=== PATIENT | male | born 1965 | race Asian ===

== ENCOUNTER 2020-02-11 12:31 | Outpatient (REF) | payer BC, SELFPAY ==
[2020-02-11 13:38] LABS: Hematocrit 42.2 % (42-52); Mean Corpuscular HGB Conc 33.2 g/dl (31.0-36.0); Mean Corpuscular Hemoglobin 28.2 pg (27.0-33.0); Mean Corpuscular Volume 84.9 fL (80-98); Mean Platelet Volume 10.9 fL (9.4-12.4); Platelet Count 194 X10*3/uL (160-400); Red Blood Count 4.97 X10*6/uL (4.60-5.80); Red Cell Distribution Width 11.7 % (11.0-16.0); White Blood Count 6.1 X10*3/uL (4.8-10.8)
[2020-02-11 14:06] LABS: Alanine Aminotransferase 25 U/L (0-40); Albumin Level 4.5 g/dL (3.5-5.0); Alkaline Phosphatase 67 U/L (39-117); Anion Gap 12 (12-20); Aspartate Amino Transferase 22 U/L (5-37); Bilirubin Direct 0.3 mg/dL (0.0-0.5); Bilirubin Total 0.8 mg/dL (0.0-1.0); Blood Urea Nitrogen 13 mg/dL (9-16); Calcium 8.9 mg/dL (8.4-10.2); Carbon Dioxide 27 mmol/L (22-29); Chloride 103 mmol/L (96-108); Cholesterol 167 mg/dL; Estimated Glomerular Filt Rate > 60; Glucose Fasting 87 mg/dL (60-99); HDL Cholesterol 41 mg/dL; LDL Cholesterol Calculated 107 mg/dl; Potassium 4.3 mmol/l (3.3-5.1); Sodium 138 mmol/L (135-145); Total Protein 7.7 g/dL (6.5-8.0); Triglycerides 98 mg/dL
== END 2020-02-11 12:32 | disposition home or self-care (01) ==
LOC: HO.10HDL 12:31
DX: E78.5 Hyperlipidemia, unspecified (principal); K21.9 Gastro-esophageal reflux disease without esophagitis
CPT/HCPCS: 36415; 80053; 80061; 80076; 82248; 85027

== ENCOUNTER 2022-11-28 10:17 | Outpatient (AMB) | payer BC, SELFPAY ==
[2022-11-28 10:29] VITALS: BP 126/60; PULSE 77; BMI 25.5
--- NOTE | 2022-11-28 10:29 | A.OFFVIS_ITS ---
Intake Vital Signs 11/28/22 10:29 Height 5 ft 9 in Weight 172 lb 13.478 oz BMI 25.5 BP 126/60 Blood Pressure Location Rt brachial Position Sitting Pulse 77 Intake Visit Reasons: Reestablish Care Intake Note: Patient presents to in office visit today as a new patient for bloating. CC: Last colonoscopy was done in 2021 and it was normal per Patient. He c/o bloating and feeling of fullness after eating. Allergies No Known Allergies Allergy (Verified 11/28/22 10:32) HPI Reestablish Care HPI Details 57 yr old patient being seen for assessment for bowel symptoms He had a colonoscopy and he had dx of UC last year He has bloating and fullness when he eats he never has any abdominal pain, he has acid reflux and he takes prevacid which helps control this v well he also takes mesalamine once daily --he felt higher doses constipate him if he misses this then he gets diarhea he avoids milk unless lactose free he goes to the bathroom once a day, formed, no blood at this tme he denies joint pains or swelling--takes glucosamine he does have tiredness no mouth ulcers no skin rash he does have anxiety, no depression he has muscle massages due to muscle spasms, PMH: glaucoma, UC, high cholesterol, GERD PSH: colonoscopy and EGD SH: non smoker, no alcohol, job for pos toffice FH: heart attack father, ?he also had colitis, ?mother wih ovarian cancer ROS: Constitutional : No Weight loss, No Fever, No Chills ENT/Mouth : No sore throat, No Rhinorrhea Eyes: No Swelling, No Redness Cardiovascular : No Chest Pain, No SOB, No Edema Respiratory : No Cough, No Sputum, No Wheezing Gastrointestinal : see HPI Genitourinary : NO Dysuria, No Urinary Frequency, No Hematuria, No Urgency Musculoskeletal : No joint pain, No Myalgias, No Joint Swelling Skin : No Skin Lesions, No rash Neuro : No Weakness, No Numbness, No Dizziness, No Headache Psych : No Anxiety/Panic, No Depression Heme/Lymph: No Bruising, No Lymphadenopathy Endocrine : No Polyuria, No Polydipsia All other systems reviewed and are negative. EXAM: GENERAL: The patient is well developed and nontoxic. VITAL SIGNS:see workflow HEENT: Nonicteric sclerae, PERRLA, EOMI. Oropharynx clear. Moist mucous membranes. Conjunctivae appear well perfused. No thyroid mass. CHEST: Chest wall is nontender. HEART: Regular rate and rhythm without murmurs. LUNGS: Clear to auscultation bilaterally. ABDOMEN: Soft, positive bowel sounds, nontender, no organomegaly.no flank tenderness SKIN: No rash, no excessive bruising, petechiae, or purpura. NEUROLOGIC: Cranial nerves II-XII intact without motor/sensory deficit. MS; normal movement A/P: 1/ Abdominal bloating and fullness, maybe due to SIBO, vs lactose intolerance, or other CHO intolerance 2/ muscle cramps, maybe due to nutritonal def or statin 3/ fatigue and tiredness maybe due to UC 4/ GERD---controlled 5/ UC-- seems controlled Plan: 1/ check labs, incl nutriton screen Ck, TSH, celiac panel 2/ H pylori breath test--stop PPI for 2 weeks 3/ check fecal lactoferrin, if high maybe change mesalamine to apriso prep 4/ check for H pylori --stp PPI for 2 weeks 5/ he will try probiotics-hold on abx for the moment, advised on Vit D supplement, 1000 units daily, [facility] Surgical History (Updated 11/28/22 @ 10:34 by ANTON Norwood) H/O colonoscopy Social History (Updated 11/28/22 @ 10:34 by ANTON Norwood) Alcohol intake: never Patient Tobacco Use Status: Never used Tobacco Physical Exam Vital Signs: Last Vital Signs Pulse 77 11/28/22 10:29 BP 126/60 11/28/22 10:29 BMI result Body Mass Index 25.5 Assessment & Plan Assessment & Plan (1) Colitis: Code(s): K52.9 - Noninfective gastroenteritis and colitis, unspecified (2) Malnutrition: Code(s): E46 - Unspecified protein-calorie malnutrition (3) Thyroid disorder: Code(s): E07.9 - Disorder of thyroid, unspecified (4) Gastritis: Code(s): K29.70 - Gastritis, unspecified, without bleeding Orders: Orders Lactoferrin, Fecal, Quant. Today E07.9 - Disorder of thyroid, unspecified, E46 - Unspecified protein-calorie malnutrition, K51.50 - Left sided colitis without complications, K52.9 - Noninfective gastroenteritis and colitis, unspecified Vitamin B12 and Folate Today E07.9 - Disorder of thyroid, unspecified, E46 - Unspecified protein-calorie malnutrition, K52.9 - Noninfective gastroenteritis and colitis, unspecified Creatine Kinase Total Today E07.9 - Disorder of thyroid, unspecified, E46 - Unspecified protein-calorie malnutrition, K52.9 - Noninfective gastroenteritis and colitis, unspecified Comprehensive Met. Panel Today E07.9 - Disorder of thyroid, unspecified, E46 - Unspecified protein-calorie malnutrition, K52.9 - Noninfective gastroenteritis and colitis, unspecified, K75.81 - Nonalcoholic steatohepatitis (ANG) C Reactive Protein Today E07.9 - Disorder of thyroid, unspecified, E46 - Unspecified protein-calorie malnutrition, K52.9 - Noninfective gastroenteritis and colitis, unspecified Ferritin Today E07.9 - Disorder of thyroid, unspecified, E46 - Unspecified protein-calorie malnutrition, K52.9 - Noninfective gastroenteritis and colitis, unspecified Magnesium Today E07.9 - Disorder of thyroid, unspecified, E46 - Unspecified protein-calorie malnutrition, K52.9 - Noninfective gastroenteritis and colitis, unspecified TSH reflex Free T4 Today E07.9 - Disorder of thyroid, unspecified, E46 - Unspecified protein-calorie malnutrition, K52.9 - Noninfective gastroenteritis and colitis, unspecified Vitamin B3 (Niacin) Today E07.9 - Disorder of thyroid, unspecified, E46 - Unspecified protein-calorie malnutrition, K52.9 - Noninfective gastroenteritis and colitis, unspecified Vitamin E Today E07.9 - Disorder of thyroid, unspecified, E46 - Unspecified protein-calorie malnutrition, K52.9 - Noninfective gastroenteritis and colitis, unspecified Vitamin A Today E07.9 - Disorder of thyroid, unspecified, E46 - Unspecified protein-calorie malnutrition, K52.9 - Noninfective gastroenteritis and colitis, unspecified Vitamin B1 Today E07.9 - Disorder of thyroid, unspecified, E46 - Unspecified protein-calorie malnutrition, K52.9 - Noninfective gastroenteritis and colitis, unspecified Vitamin B5 (Pantothenic Acid) Today E07.9 - Disorder of thyroid, unspecified, E46 - Unspecified protein-calorie malnutrition, K52.9 - Noninfective gastroenteritis and colitis, unspecified Vitamin B6 Today E07.9 - Disorder of thyroid, unspecified, E46 - Unspecified protein-calorie malnutrition, K52.9 - Noninfective gastroenteritis and colitis, unspecified Vitamin C Today E07.9 - Disorder of thyroid, unspecified, E46 - Unspecified protein-calorie malnutrition, K52.9 - Noninfective gastroenteritis and colitis, unspecified Vitamin D 25-OH Total Today E07.9 - Disorder of thyroid, unspecified, E46 - Unspecified protein-calorie malnutrition, K52.9 - Noninfective gastroenteritis and colitis, unspecified Zinc Today E07.9 - Disorder of thyroid, unspecified, E46 - Unspecified protein- calorie malnutrition, K52.9 - Noninfective gastroenteritis and colitis, unspecified Complete Blood Count Auto Diff Today E07.9 - Disorder of thyroid, unspecified, E46 - Unspecified protein-calorie malnutrition, K52.9 - Noninfective gastroenteritis and colitis, unspecified Transglutaminase IgA Today E07.9 - Disorder of thyroid, unspecified, E46 - Unspecified protein-calorie malnutrition, K52.9 - Noninfective gastroenteritis and colitis, unspecified Transglutaminase Ab IgG Today E07.9 - Disorder of thyroid, unspecified, E46 - Unspecified protein-calorie malnutrition, G89.29 - Other chronic pain, K52.9 - Noninfective gastroenteritis and colitis, unspecified, R10.33 - Periumbilical pain Hepatitis A,B,C Profile Today E07.9 - Disorder of thyroid, unspecified, E46 - Unspecified protein-calorie malnutrition, K52.9 - Noninfective gastroenteritis and colitis, unspecified H Pylori Breath Test Today E07.9 - Disorder of thyroid, unspecified, E46 - Unspecified protein-calorie malnutrition, K29.70 - Gastritis, unspecified, without bleeding, K52.9 - Noninfective gastroenteritis and colitis, unspecified Coding Level of Care Code New Pt Level 4 (75637) Diagnoses Colitis K52.9 Malnutrition E46 Thyroid disorder E07.9 Gastritis K29.70
== END 2022-11-28 11:24 | disposition home or self-care (01) ==
PROVIDERS: Visit Provider Internal Medicine Gastroenterology
DX: K52.9 Noninfective gastroenteritis and colitis, unspecified (principal); E46 Unspecified protein-calorie malnutrition; E07.9 Disorder of thyroid, unspecified; K29.70 Gastritis, unspecified, without bleeding
CPT/HCPCS: 99204

== ENCOUNTER 2022-11-28 10:17 | Outpatient (REF) | payer BC, SELFPAY | END 2022-11-28 10:18 | disposition home or self-care (01) | LOC: HO.LAB 10:17 | PROVIDERS: PCP Hospitalist; Visit Provider Internal Medicine Gastroenterology | DX: Z13.89 Encounter for screening for other disorder (principal) ==

== ENCOUNTER 2022-11-29 11:14 | Outpatient (REF) | payer BC, SELFPAY ==
[2022-11-29 11:40] LABS: MANUAL DIFF FLAG NO
[2022-11-29 11:55] LABS: Basophils Absolute Auto 0.1 X10*3/uL (0.0-0.2); Eosinophils Absolute Auto 0.3 X10*3/uL (0.0-0.4); Eosinophils Percent Auto 4.9 % (0-4); Hematocrit 44.4 % (42.0-52.0); Imm Gran Abs Auto 0.01 X10*3/uL (0.00-0.03); Imm Gran Pct Auto 0.2 % (0.0-0.4); Lymphocytes Absolute Auto 1.3 X10*3/uL (1.2-4.9); Lymphocytes Percent Auto 25.3 % (20-40); Mean Corpuscular HGB Conc 33.8 g/dl (31.0-36.0); Mean Corpuscular Hemoglobin 28.3 pg (27.0-33.0); Mean Corpuscular Volume 83.8 fL (80.0-98.0); Mean Platelet Volume 11.4 fL (9.4-12.4); Monocytes Absolute Auto 0.4 X10*3/uL (0.1-1.2); Monocytes Percent Auto 7.3 % (2-11); Neutrophils Absolute Auto 3.1 x10*3/uL (2.0-8.3); Neutrophils Percent Auto 61.3 % (45-73); Platelet Count 204 X10*3/uL (160-400); Red Cell Distribution Width 12.1 % (11.0-16.0); White Blood Count 5.1 X10*3/uL (4.8-10.8)
[2022-11-29 12:49] LABS: Alanine Aminotransferase 21 U/L (0-40); Albumin Level 4.4 g/dL (3.5-5.0); Alkaline Phosphatase 64 U/L (39-117); Anion Gap 9 (12-20); Aspartate Amino Transferase 19 U/L (5-37); Blood Urea Nitrogen 13 mg/dL (9-16); C Reactive Protein < 0.10 mg/dL (< or = 0.50); Calcium 9.9 mg/dL (8.4-10.2); Carbon Dioxide 27 mmol/L (22-29); Chloride 106 mmol/L (96-108); Estimated Glomerular Filt Rate > 60; Glucose Random 93 mg/dL (60-115); Magnesium 2.4 mg/dL (1.6-2.6); Potassium 4.1 mmol/L (3.3-5.1); Sodium 138 mmol/L (135-145)
[2022-11-29 13:04] LABS: Ferritin 17 ng/mL (20-250); TSH reflex Free T4 3.12 uIU/mL (0.32-4.0); Vitamin D 25-OH Total 11.1 ng/mL (>30)
[2022-11-29 14:01] LABS: Folate 8.1 ng/mL (> or = 4.0); Vitamin B12 295 pg/mL (200-900)
[2022-11-30 04:12] LABS: HBS Num1 0.42 mIU/mL (0-7.99); HBc Num1 0.09 S/CO (0.00-0.79); HBsAGNum1 0.36 S/CO (0.00-0.99); Hepatitis A Antibody IgM 0.45 Index (0-0.79); Hepatitis B Core Antibody Nonreactive (Nonreactive); Hepatitis B Surface Antigen Negative (Negative); ~HepC Num1 0.07 S/CO (0.00-0.79); ~Hepatitis A Antibody IgM Nonreactive (Nonreactive); ~Hepatitis B Surface Antibody NONREACTIVE (Nonreactive); ~Hepatitis C Antibody Nonreactive (Nonreactive)
[2022-12-02 14:38] LABS: Transglutaminase Ab IgG <1.0 U/mL; Transglutaminase IgA <1.0 U/mL
[2022-12-03 21:09] LABS: Zinc 72 mcg/dL (60-130)
[2022-12-04 15:24] LABS: Vitamin B6 11.8 ng/mL (2.1-21.7)
[2022-12-04 18:29] LABS: Alpha-Tocopherol 11.2 mg/L (5.7-19.9); Beta-Gamma Tocopherol 1.6 mg/L (<=4.3); Vitamin A 49 mcg/dL (38-98)
[2022-12-05 14:49] LABS: Vitamin B1 10 nmol/L (8-30)
[2022-12-05 17:13] LABS: Vitamin C 0.1 mg/dL (0.2-2.1)
[2022-12-06 19:04] LABS: Nicotinamide 31 ng/mL; Vit B3 - Nicotinic Acid <20 ng/mL; Vitamin B5 (Pantothenic Acid) <40 ng/mL (<275)
== END 2022-11-29 11:15 | disposition home or self-care (01) ==
LOC: HO.LAB 11:14
PROVIDERS: Visit Provider Internal Medicine Gastroenterology
DX: R10.33 Periumbilical pain (principal); E07.9 Disorder of thyroid, unspecified; K52.9 Noninfective gastroenteritis and colitis, unspecified; K75.81 Nonalcoholic steatohepatitis (NASH); G89.29 Other chronic pain; E46 Unspecified protein-calorie malnutrition
CPT/HCPCS: 36415; 80053; 82180; 82306; 82550; 82607; 82728; 82746; 83735; 84207; 84425; 84443; 84446; 84590; 84591; 84630; 85025; 86140; 86364; 86704; 86706; 86709; 86803; 87340

== ENCOUNTER 2022-11-30 | Outpatient (REF) | payer BC, SELFPAY | END 2022-11-30 00:01 | disposition home or self-care (01) | LOC: HO.LNP | PROVIDERS: Visit Provider Internal Medicine Gastroenterology | DX: K51.50 Left sided colitis without complications (principal); K52.9 Noninfective gastroenteritis and colitis, unspecified; E46 Unspecified protein-calorie malnutrition; E07.9 Disorder of thyroid, unspecified | CPT/HCPCS: 83631 ==

== ENCOUNTER → 2022-12-12 09:17 | Outpatient (BNVA) | payer BC, SELFPAY | PROVIDERS: PCP Hospitalist; Visit Provider Internal Medicine Gastroenterology | DX: Z11.0 Encounter for screening for intestinal infectious diseases (principal) | CPT/HCPCS: 83013 ==

== ENCOUNTER 2023-03-07 09:06 | Outpatient (AMB) | payer BC, SELFPAY ==
--- NOTE | 2023-03-07 09:11 | A.OFFVIS_ITS ---
Intake Vital Signs 03/07/23 09:12 Height 5 ft 9 in Weight 175 lb BMI 25.8 BP 131/74 Blood Pressure Location Lt brachial Position Sitting Pulse 71 Intake Visit Reasons: 3 month follow up Intake Note: Patient 3 month follow up Colitis. Patient denies any GI issues. 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 Accompanied by: Self / Same As Patient Allergies No Known Allergies Allergy (Verified 03/07/23 09:10) HPI 3 month follow up HPI Details 57 yr old m here for f/u- hx of glaucoma , UC, high cholesterol, GERD RECAP: He had a colonoscopy and he had dx of UC 2021 He has bloating and fullness when he eats he never has any abdominal pain, he has acid reflux and he takes prevacid which helps control this v well he also takes mesalamine once daily --he felt higher doses constipate him if he misses this then he gets diarhea he avoids milk unless lactose free he goes to the bathroom once a day, formed, no blood at this tme he denies joint pains or swelling--takes glucosamine he does have tiredness no mouth ulcers no skin rash he does have anxiety, no depression he has muscle massages due to muscle spasms, LABS: ferritin- low , H pylori neg, celiac, neg, Vit D, B12 and Vit C levels low, fecal lactoferrin neg INTERIM: He can have cramps, when trying to go to the bathroom he has formed stools, burning at the rectal area he goes to the bathroom twice a day he takes mesalamine --only takes once a day as feels if he takes too much it can constipate no fever or nausea he has been taking MV, Vit D and Vit C He takes omeprazole prn EXAM: GENERAL: The patient is well developed and nontoxic. VITAL SIGNS:see workflow HEENT: Nonicteric sclerae, PERRLA, EOMI. Oropharynx clear. Moist mucous membranes. Conjunctivae appear well perfused. No thyroid mass. CHEST: Chest wall is nontender. HEART: Regular rate and rhythm without murmurs. LUNGS: Clear to auscultation bilaterally. ABDOMEN: Soft, positive bowel sounds, nontender, no organomegaly.no flank tenderness SKIN: No rash, no excessive bruising, petechiae, or purpura. NEUROLOGIC: Cranial nerves II-XII intact without motor/sensory deficit. MS; normal movement A/P: 1/ Malnutrition 2/ Iron def 3/ abn bowel habits, cramps with rectal burning Plan: 1/ Given nutrient def need to r/o crohns or other path, enteropathy-- 2/ repeat colonoscopy due to to iron def and c/o burning [facility] the [facility]um [facility] H/O colonoscopy Social History Alcohol intake: never Patient Tobacco Use Status: Never used Tobacco Physical Exam Vital Signs: Last Vital Signs Pulse 71 03/07/23 09:12 BP 131/74 03/07/23 09:12 BMI result Body Mass Index 25.8 Assessment & Plan Assessment & Plan (1) Iron deficiency: Code(s): E61.1 - Iron deficiency (2) Gastritis: Code(s): K29.70 - Gastritis, unspecified, without bleeding (3) Colitis: Code(s): K52.9 - Noninfective gastroenteritis and colitis, unspecified (4) Malnutrition: Code(s): E46 - Unspecified protein-calorie malnutrition Medications: New sodium,potassium,mag sulfates 17.5-3.13-1.6 gram (Supr Bowel Prep Kit) DILUTE; drink 1/2 at 6-8 pm and half at 11 PM- 1AM 354 mL 0RF Coding Level of Care Code Est Pt Level 4 (38684) Diagnoses Iron deficiency E61.1 Gastritis K29.70 Colitis K52.9 Malnutrition E46
[2023-03-07 09:12] VITALS: BP 131/74; PULSE 71; BMI 25.8
== END 2023-03-07 09:46 | disposition home or self-care (01) ==
PROVIDERS: PCP Hospitalist; Visit Provider Internal Medicine Gastroenterology
DX: E61.1 Iron deficiency (principal); K29.70 Gastritis, unspecified, without bleeding; K52.9 Noninfective gastroenteritis and colitis, unspecified; E46 Unspecified protein-calorie malnutrition
CPT/HCPCS: 99214

== ENCOUNTER → 2023-03-07 09:06 | Outpatient (BNVA) | payer BC, SELFPAY | PROVIDERS: PCP Hospitalist; Visit Provider Internal Medicine Gastroenterology ==

== ENCOUNTER 2023-05-29 08:38 | Day surgery (SDC) | payer BC, SELFPAY ==
[2023-05-27 12:35] VITALS: BMI 25.8
--- NOTE | 2023-05-28 10:17 | P.CONAN_ITS ---
Documented by User: Alexia Curtis NP 05/28/23 10:18 HPI - Anesthesia Eval Consult details Narrative: 57yo M for Upper Endoscopy and Colonoscopy [facility] Active Problems Active Problems: All Active Problems (Updated 05/27/23 @ 12:33 by Jyothi Gamino RN) Iron deficiency (Acute) Gastritis (Acute) Thyroid disorder (Acute) Malnutrition (Acute) Colitis (Acute) Past Medical History Medical History GERD (gastroesophageal reflux disease) Elevated cholesterol Glaucoma Surgical History Surgical History Hx of esophagogastroduodenoscopy H/O colonoscopy Social History Social History Alcohol intake: never Patient Tobacco Use Status: Never used Tobacco Are you DNR?: No Advance Directives: No Advance Directives Information Provided: Yes Meds Allergies Allergy/AdvReac Type Severity Reaction Status Date / Time No Known Allergies Allergy Verified 03/07/23 09:10 Home Medications Medication Instructions Recorded Confirmed Last Taken Type Triflex PO DAILY 11/28/22 Unknown History lansoprazole 15 mg capsule,delayed 15 mg PO DAILY 11/28/22 Unknown History release (Prevacid 24Hr) latanoprost 0.005 % eye drops 0 drp ophthalmic (eye) 11/28/22 Unknown History mesalamine 0.375 gram 0.75 g PO DAILY 11/28/22 Unknown History capsule,extended release 24 hr rosuvastatin 5 mg tablet 5 mg PO DAILY 11/28/22 Unknown History Exam Height,Weight and Vital Signs: Height 5 ft 9 in Weight 79.379 kg Assessment and Plan Assessment Anesthesia Assessment: Chart Reviewed Documented by User: Martin Rivero MD 05/29/23 09:55 [facility] Past Medical History Medical History GERD (gastroesophageal reflux disease) Elevated cholesterol Glaucoma Family History Family history of problems with anesthesia: No Surgical History Surgical History Hx of esophagogastroduodenoscopy H/O colonoscopy History of Problems with Anesthesia: No Social History Social History Alcohol intake: never Patient Tobacco Use Status: Never used Tobacco Are you DNR?: No Advance Directives: No Advance Directives Information Provided: Yes Meds Allergies Allergy/AdvReac Type Severity Reaction Status Date / Time No Known Allergies Allergy Verified 03/07/23 09:10 Home Medications Medication Instructions Recorded Confirmed Last Taken Type Triflex PO DAILY 11/28/22 Unknown History lansoprazole 15 mg capsule,delayed 15 mg PO DAILY 11/28/22 Unknown History release (Prevacid 24Hr) latanoprost 0.005 % eye drops 0 drp ophthalmic (eye) 11/28/22 Unknown History mesalamine 0.375 gram 0.75 g PO DAILY 11/28/22 Unknown History capsule,extended release 24 hr rosuvastatin 5 mg tablet 5 mg PO DAILY 11/28/22 Unknown History Exam Airway Mallampati Class: II TM Dist: >3cm Neck ROM: Full Loose/Missing/Broken Teeth: No Heart: [id number] Lungs: cta b/l Assessment and Plan Assessment Anesthesia Assessment: Anesthesia Plan Discussed Final Anesthetic Review Family History of Problems with Anesthesia: No History of Problems with Anesthesia: No NPO: Yes ASA Class: II Final Preanesthetic Review: No Changes in Pt Med Stat, Meds/Allgs Chart Reviewed, Consent Obtained/Reviewed and Anes Risks/Benef Reviewed Patient Risk: Intermediate Procedure Risk: Intermediate Assessment/Block/Sedation in SS: Assess/Block/Sedation-SS Anesthetic Plan Anesthetic Plan: MAC: Disposition: Standard PACU
[2023-05-29 08:45] VITALS: BP 153/99; PULSE 91; RESP 20; TEMP 36.1; O2SAT 98; BMI 25.8
[2023-05-29] MEDS: Lactated Ringers 1,000 ML 100 ML IVCONT (09:12)
--- NOTE | 2023-05-29 10:06 | MHC.SHP ---
Pre-Procedural Eval Section A - 24 Hr Update-Section A only Date of Service: 05/29/23 Section B - Complete if H&P > 30 days Chief Complaint: Noninfective gastroenteritis and colitis, unspecif Details of Present Illness: iron def Relevant Family History (Specify if Yes): No Relevant Social History: None Present Medications: see Short Stay Collaborative assessment Medical History: Significant History (GERD (gastroesophageal reflux disease) Elevated cholesterol Glaucoma) History of Previous Operations: Relevant previous surgery/procedure and date(s) (Hx of esophagogastroduodenoscopy H/O colonoscopy) Allergies: Allergies Allergy/AdvReac Type Severity Reaction Status Date / Time No Known Allergies Allergy Verified 03/07/23 09:10 Review of Systems Sugical H&P ROS: Negative: Constitution, Cardiovascular, Respiratory, Neurological, Psychiatric, Hem-Onc, Allergic/Immunologic, Gastrointestinal, Genitourinary, Musculoskeletal, Integumentary, Endocrine and Eyes/Ears/Nose/Throat Exam Surgical H&P Exam: Normal: HEENT, Normal: Heart, Normal: Lungs, Normal: Extremities, Normal: Abdomen, Normal: Skin and Normal: Neurological Plan Diagnosis/Plan: Unchanged I have reviewed the history and physical and performed a pertinent physical examination on my patient. No changes have occurred unless specified. EGD and colo for assessment of colitis and iron def Time Spent With Patient Time: Total time managing care of this patient today ____ minutes.
--- NOTE | 2023-05-29 10:58 | P.OP_ITS ---
Operative Note Operative Note Date of Service: 05/29/23 Narrative: Operative Information Procedure Description: EGD, Colonoscopy Indication: hx of colitis, iron def Anesthesia: MAC FLEXIBLE TRANSORAL UPPER GASTROINTESTINAL ENDOSCOPY AND COLONOSCOPY PROCEDURE NOTE UPPER ENDOSCOPY Consent: Indications for the procedure and potential complications of bleeding, perforation, reaction to medications and missed diagnosis were discussed with the patient and informed consent was obtained. Instrument: Olympus GIF H 190 J mid size upper endoscope Monitoring: Vital signs and clinical assessment, continuous EKG monitoring, Pulse oximetry, Carbon Dioxide monitoring and blood pressure monitoring were done throughout the procedure. Procedure: The patient was placed in the left lateral decubitis position and pre-procedure medications were administered and a bite block was placed. The endoscope was inserted into the mouth and advanced under direct vision to the third part of duodenum. A careful inspection was made as the upper endoscope was withdrawn including a retroflexed examination of the proximal stomach; Findings and interventions are described below. Findings: Larynx:normal Esophagus: GE junction at 40 cm, diaphragm hiatus at 40 cm, bogginess and erythema at GEJ, bx taken as well as from distal and proximal esophagus, LES was lax. Stomach: streaky erythema at antrum. Biopsies were obtained. Grade 2 flap valve on retroflexed examination of the cardia. Duodenum: Normal bulb and descending duodenum, bx taken Intervention: Biopsies as noted above COLONOSCOPY Instrument: Olympus variable stiffness pediatric scope 190L Colonoscopy Monitoring: Vital signs and clinical assessment, continuous EKG monitoring, Pulse oximetry, Carbon Dioxide monitoring and blood pressure monitoring were done throughout the procedure. Colon withdrawal time was 8 minutes. Procedure: The patient was placed in the left lateral decubitis position and pre-procedure medications were administered. After a digital rectal examination of the ano-rectum, the video colonoscope was inserted into the rectum and advanced through the colon to the cecum/TI. The colonoscope was slowly withdrawn in a retrograde panoramic fashion and the colon mucosa was carefully examined including a retroflexed view of the rectum. Findings and interventions are described below. Procedure Difficulty: easy Findings: Terminal Ileum-normal, random bx taken Cecum:normal, random bx taken Ascending Colon: normal, random bx taken Transverse Colon -normal, random bx taken Descending Colon:normal, random bx taken Sigmoid Colon: normal, random bx taken, old tattoo nilda noted Rectum: Retroflexion with small internal hemorrhoids, grade I, scar tissue noted Anorectum - normal Colon preparation: [place] Bowel Preparation Scale Right colon; 3 Transverse colon: 3 Left colon; 3 (0 = Unprepared colon segment with mucosa not seen due to solid stool that cannot be cleared. 1 = Portion of mucosa of the colon segment seen, but other areas of the colon segment not well seen due to staining, residual stool and/or opaque liquid. 2 = Minor amount of residual staining, small fragments of stool and/or opaque liquid, but mucosa of colon segment seen well. 3 = Entire mucosa of colon segment seen well with no residual staining, small fragments of stool or opaque liquid) Impression and Post Procedure Diagnosis: Endoscopy Findings: lax LES gastritis esophagitis Colonoscopy Findings: internal hemorrhoids Plan: Await Pathology results Repeat Colonoscopy in 2-3 years or earlier if clinically indicated High fiber diet leaflet avoid straining at stool, epsom salts and sitz bath, anusol supps or cream check compliance with PPI, if H pylori pos then treat Above findings were reviewed with the patient and relevant handouts were provided if indicated.
[2023-05-29 11:16] VITALS: BP 94/53; PULSE 90; RESP 16; TEMP 36.7; O2SAT 96
[2023-05-29 11:31] VITALS: BP 91/55; PULSE 72; RESP 16; O2SAT 95
[2023-05-29 11:47] VITALS: BP 117/77; PULSE 80; RESP 16; TEMP 36.6; O2SAT 100
== END 2023-05-29 12:08 | disposition home or self-care (01) ==
PROVIDERS: PCP Hospitalist; Visit Provider Internal Medicine Gastroenterology
PROC: (CPT 43239; principal; 2023-05-29 11:10)
DX: K22.89 Other specified disease of esophagus (principal); K22.4 Dyskinesia of esophagus; K29.70 Gastritis, unspecified, without bleeding; K64.0 First degree hemorrhoids; E61.1 Iron deficiency; E78.00 Pure hypercholesterolemia, unspecified
CPT/HCPCS: 43239; 45380; 88305; 88313; 88342; J1596; J2704

== ENCOUNTER → 2023-05-29 08:38 | Outpatient (BNV) | payer BC, SELFPAY | PROVIDERS: PCP Hospitalist; Visit Provider Internal Medicine Gastroenterology | DX: D50.9 Iron deficiency anemia, unspecified (principal); K29.70 Gastritis, unspecified, without bleeding; K20.90 Esophagitis, unspecified without bleeding; K22.4 Dyskinesia of esophagus; K64.0 First degree hemorrhoids; Z87.19 Personal history of other diseases of the digestive system | CPT/HCPCS: 43239; 45380 ==

== ENCOUNTER 2025-02-01 11:41 | Outpatient (REF) | payer BC, SELFPAY ==
[2025-02-01 12:05] LABS: MANUAL DIFF FLAG NO
[2025-02-01 12:26] LABS: Hematocrit 41.9 % (42.0-52.0); Hemoglobin 14.1 g/dl (14.0-18.0); Imm Gran Abs Auto 0.01 X10*3/uL (0.00-0.03); Imm Gran Pct Auto 0.2 % (0.0-0.4); Lymphocytes Absolute Auto 1.5 X10*3/uL (1.2-4.9); Mean Corpuscular HGB Conc 33.7 g/dl (31.0-36.0); Mean Corpuscular Hemoglobin 28.4 pg (27.0-33.0); Mean Corpuscular Volume 84.5 fL (80.0-98.0); NRBC Abs Auto 0.000 X10*3/uL (0.0-0.012); NRBC Pct Auto 0.0 /100WBC (0.0-0.2); Platelet Count 185 X10*3/uL (160-400); Red Blood Count 4.96 X10*6/uL (4.60-5.80); White Blood Count 5.5 X10*3/uL (4.8-10.8)
[2025-02-01 14:15] LABS: Alanine Aminotransferase 26 U/L (0-40); Albumin Level 4.5 g/dL (3.5-5.0); Alkaline Phosphatase 67 U/L (39-117); Anion Gap 10 (12-20); Aspartate Amino Transferase 22 U/L (5-37); Blood Urea Nitrogen 11 mg/dL (9-16); Calcium 8.9 mg/dL (8.4-10.2); Carbon Dioxide 26 mmol/L (22-29); Chloride 108 mmol/L (96-108); Estimated Glomerular Filt Rate > 60; Potassium 4.1 mmol/L (3.3-5.1); Sodium 140 mmol/L (135-145); Total Protein 7.3 g/dL (6.5-8.0)
--- OUTSIDE RECORDS SUMMARY | 2025-02-01 14:17 | XMS_ITS | Patient Health Record ---
Author Organization [employer] [facility] Address [address] [place] [address] Care Team Providers Care Boat Hoist Operator Name Role Phone DOMINGOMarielyMICHAELA Primary Care Provider Samantha Page Unavailable [phone] Allergies No Known Allergies Results Component Value Reference Range Notes C-Reactive Protein, Quant-00 6627 Reviewed date:08/18/2024 12:30:43 PM Interpretation: Performing Lab:[facility], [address] [place] [address], Phone - [phone], Director - MDTutuy Notes/Report: C-Reactive Protein, Quant <1 0-10 mg/L Sedimentation Rate-Westergre n-[id number] Reviewed date:08/18/2024 12:30:45 PM Interpretation: Performing Lab:[facility], [address] [facility], Phone - [phone], Director - Elviradry Notes/Report: Sedimentation Rate-Westergren 7 0-30 mm/hr CBC With Differential/Platel et-[id number] Reviewed date:08/18/2024 12:30:47 PM Interpretation: Performing Lab:[facility], [address] [facility], Phone - [phone], Director - MDJodry Notes/Report: WBC 6.6 3.4-10.8 [...] (14)-3 Reviewed date:08/18/2024 12:30:50 PM Interpretation: Performing Lab:[facility], [email or web address], Phone - [phone], Director - MDJodry Notes/Report: Glucose 90 70-99 [...] IU/L ALT (SGPT) 18 0-44 IU/L Lipid Panel-[id number] Reviewed date:08/18/2024 12:31:31 PM Interpretation: Performing Lab:[facility], [address] [facility] [place], Phone - [phone], Director - MDJodry Notes/Report: Cholesterol, Total 158 [...] 1 tablet Orally Once a day Active Zvccfbsa-Fseqkmqkw-YB 1 % 4 drops into a ffected [...] W/U Status Risk Notes Problem Mixed hyperlipidemia (484070131) Mixed hyperlipidemia (E78.2) Active confirmed Problem Chronic ulcerative pancolitis (057091929) Ulcerative (chronic) pancolitis with unspecified complications (K51.019) Active confirmed Problem Disorder of intestine (54870012) Disease of digestive system, unspecified (K92.9) Active confirmed Vital Signs Heart Rate 83 /min 12/24/2024 Temperature 96.9 degrees Fahrenheit 12/24/2024 Oximetry 98 % 12/24/2024 Blood pressure diastolic 74 mm Hg 12/24/2024 Height 69 in 12/24/2024 Blood pressure systolic 110 mm Hg 12/24/2024 Weight 171.6 lbs 12/24/2024 BMI 25.34 kg/m2 12/24/2024 Encounters Encounter Location Date Provider Diagnosis [address] [place] [address] 09/06/2024 MICHAELA OCHOA Encounter for genera l adult medical examination without abnormal findings Z00.00 ; Ulcerative (chronic) pancolitis with unspecified complications K51.019 ; Mixed hyperlipidemia E78.2 and Encounter for screening for malignant neoplasm of prostate Z12.[address] [place] [address] 12/24/2024 Ghadeer Mazloum Right ear pain H92.[address] [place] [address] 08/04/2024 MICHAELA OCHOA Mixed hyperlipidemia E78.2 and Ulcerative (chronic) pancolitis with unspecified complications K51.019 Assessments Encounter Date Diagnosis (ICD Code) Assessment Notes Treatment Notes Treatment Clinical Notes Section Notes 08/04/2024 Mixed hyperlipidemia (ICD-10 - E78.2) 09/06/2024 Encounter for general adult medical examination [...] asymptomatic and follows up with GI at [facility]. Screening blood work reviewed. He is up-to-date on age specific screening. He was advised to lose 5-10 pounds. 12/24/2024 Right ear pain (ICD-10 - H92.01) [...] patient but was available upon request 09/06/2024 Ulcerative (chronic) pancolitis with unspecified complications [...] asymptomatic and follows up with GI at [facility]. Screening blood work reviewed. He is up-to-date [...] asymptomatic and follows up with GI at [facility]. Screening blood work reviewed. He is up-to-date [...] asymptomatic and follows up with GI at [facility]. Screening blood work reviewed. He is up-to-date on age specific screening. He was advised to lose 5-10 pounds. Plan Of Treatment Pending Test Test Name Order Date Xray: Chest-Standard Frontal & Lat 05/28 Future Test Test Name Order Date CBC, Platelet, No Differential-[id number] Lipid Panel-[id number] 09/06/2024 Comp. Metabolic Panel (14)-[id number] 2024 PSA (Serial Monitor)-[id number] 09/06/2024 Next Appt Details Provider Name:JENNINGSJACKIE OCHOA , 09/07/2025 10:00:00 AM, [address] [place] [address], [place], [address], Insurance Providers Payer Name Payer Address Payer Phone Subscriber Number Group Number Insured Name Patient Relationship to Insured Coverage Start Date Coverage End Date [facility] [address] [place] [address] [id number] Jose Macias Self - patient is the insured 1 Medical (General) History Medical History History ICD Code hyperlipidemia Chronic ramirez colitis on colonoscopy in by Dr Mccracken
== END 2025-02-01 11:42 | disposition home or self-care (01) ==
LOC: HO.LAB 11:41
PROVIDERS: PCP Hospitalist; Visit Provider Internal Medicine Gastroenterology
DX: K75.81 Nonalcoholic steatohepatitis (NASH) (principal); K52.9 Noninfective gastroenteritis and colitis, unspecified
CPT/HCPCS: 36415; 80053; 85025; 86140

== ENCOUNTER 2025-02-16 08:00 | Day surgery (SDC) | payer BC, SELFPAY ==
--- OUTSIDE RECORDS SUMMARY | 2025-01-18 09:42 | XMS_ITS | Patient Health Record ---
Author Organization [employer] [facility] Address [address] [place] [address] Care Team Providers Care Music Composer Name Role Phone DOMINGOMarielyMICHAELA Primary Care Provider Samantha Page Unavailable [phone] Allergies No Known Allergies Results Component Value Reference Range Notes C-Reactive Protein, Quant-00 6627 Reviewed date:08/18/2024 12:30:43 PM Interpretation: Performing Lab:[facility], [address] [place] [address], Phone - [phone], Director - MDTutuy Notes/Report: C-Reactive Protein, Quant <1 0-10 mg/L Sedimentation Rate-Westergre n-[id number] Reviewed date:08/18/2024 12:30:45 PM Interpretation: Performing Lab:[facility], [address] [facility], Phone - [phone], Director - Elviradry Notes/Report: Sedimentation Rate-Westergren 7 0-30 mm/hr CBC With Differential/Platel et-[id number] Reviewed date:08/18/2024 12:30:47 PM Interpretation: Performing Lab:[facility], [address] [facility], Phone - [phone], Director - MDJodry Notes/Report: WBC 6.6 3.4-10.8 x10E3/uL RBC 5.20 4.14-5.80 x10E6/uL Hemoglobin 15.2 13.0-17.7 g/dL Hematocrit 45.5 37.5-51.0 % MCV 88 79-97 fL MCH 29.2 26.6-33.0 pg MCHC 33.4 31.5-35.7 g/dL RDW 12.4 11.6-15.4 % Platelets 225 150-450 x10E3/uL Neutrophils 59 Not Estab. % Lymphs 29 Not Estab. % Monocytes 7 Not Estab. % Eos 4 Not Estab. % Basos 1 Not Estab. % Neutrophils (Absolute) 3.9 1.4-7.0 x10E3/uL Lymphs (Absolute) 1.9 0.7-3.1 x10E3/uL Monocytes(Absolute) 0.5 0.1-0.9 x10E3/uL Eos (Absolute) 0.3 0.0-0.4 x10E3/uL Baso (Absolute) 0.1 0.0-0.2 x10E3/uL Immature Granulocytes 0 Not Estab. % Immature Grans (Abs) 0.0 0.0-0.1 x10E3/uL Comp. Metabolic Panel (14)-3 Reviewed date:08/18/2024 12:30:50 PM Interpretation: Performing Lab:[facility], [facility], Phone - [phone], Director - MDJodry Notes/Report: Glucose 90 70-99 mg/dL BUN 11 6-24 mg/dL Creatinine 0.98 0.76-1.27 mg/dL eGFR 89 >59 mL/min/1.73 BUN/Creatinine Ratio 11 9-20 Sodium 139 134-144 mmol/L Potassium 4.4 3.5-5.2 mmol/L Chloride 102 96-106 mmol/L Carbon Dioxide, Total 21 20-29 mmol/L Calcium 9.4 8.7-10.2 mg/dL Protein, Total 7.3 6.0-8.5 g/dL Albumin 4.6 3.8-4.9 g/dL Globulin, Total 2.7 1.5-4.5 g/dL Bilirubin, Total 0.5 0.0-1.2 mg/dL Alkaline Phosphatase 72 44-121 IU/L AST (SGOT) 18 0-40 IU/L ALT (SGPT) 18 0-44 IU/L Lipid Panel-[id number] Reviewed date:08/18/2024 12:31:31 PM Interpretation: Performing Lab:[facility], [address] [facility], [place], Phone - [phone], Director - MDJodry Notes/Report: Cholesterol, Total 158 100-199 mg/dL Triglycerides 128 0-149 mg/dL HDL Cholesterol 44 >39 mg/dL VLDL Cholesterol Dajuan 23 5-40 mg/dL LDL Chol Calc (NIH) 91 0-99 mg/dL Reason For Referral No Information Medications Medication SIG (Take, Route, Frequency, Duration) Notes Start Date End Date Status Levocetirizine Dihydrochloride 5 MG TAKE 1 TABLET BY MOUTH EVERY DAY IN THE EVENING FOR 30 DAYS; Duration: 30 Not-Taking predniSONE 20 MG 1 tablet Orally Once a day; Duration: 7 days 06/04/2023 Not-Taking guaiFENesin ER 600 MG 1 tablet as needed Orally every 12 hrs; Duration: 7 days 05/08/2023 Not-Taking Shingrix 50 MCG/0.5ML as directed Intramuscular 1; Duration: 365 days 08/29/2021 Not-Taking Wen Allergy 180 MG 1 tablet Swallow whole with water; do not take with fruit juices. Orally Once a day; Duration: 30 day(s) Not-Taking Rosuvastatin Calcium 5 MG TAKE 1 TABLET BY MOUTH EVERY DAY; Duration: 90 Active Clotrimazole 1 % 1 application Externally Twice a day; Duration: 28 day(s) 08/29/2021 Not-Taking Multivitamin - 1 tablet Orally Once a day Active Ivyklesj-Qdptrirrs-EE 1 % 4 drops into a ffected ear Otic Three times a day; Duration: 7 days 07/26/2022 Not-Taking Doxycycline Hyclate 100 MG 1 tablet Orally 2 times a day; Duration: 7 days 05/08/2023 Not-Taki ng Mesalamine ER 0.375 GM 2 capsules Orally Once a day; Duration: 90 days Not-Taking Ampicillin 500 MG 1 capsule after a me al Orally every 8 hrs; Duration: 5 day(s) 10/23/2021 Not-Taking Augmentin 500-125 MG 1 tablet Orally ruy ry 12 hrs; Duration: 7 day(s) 07/26/2022 Not-Taking Fluticasone Propionate 50 MCG/ACT SPRAY 1 SPRAY INTO EACH NOSTRIL EVERY DAY FOR 30 DAYS; Duration: 30 Not-Taking Immunizations Vaccine Route Administration Date Status Comme nts COVID Unknown 08/02/2020 Administered Pfizer COVID Unknown 09/01/2020 Administered Pfizer Social History Tobacco Use: Social History Observation Description Date Details (start date - stop date) Never Smoker NA - NA Tobacco Use/Smoking Question Answer Notes Are you a nonsmoker Alcohol Screen (Audit-C) Question Answer Notes Did you have a drink containing alcohol in the p ast year? No Points 0 Interpretation Negative Problems Problem Type SNOMED Code ICD Code Onset Dates Problem Status W/U Status Risk Notes Problem Mixed hyperlipidemia (588662132) Mixed hyperlipidemia (E78.2) Active confirmed Problem Chronic ulcerative pancolitis (668040121) Ulcerative (chronic) pancolitis with unspecified complications (K51.019) Active confirmed Problem Disorder of intestine (53739670) Disease of digestive system, unspecified (K92.9) Active confirmed Vital Signs Heart Rate 83 /min 12/24/2024 Temperature 96.9 degrees Fahrenheit 12/24/2024 Oximetry 98 % 12/24/2024 Blood pressure diastolic 74 mm Hg 12/24/2024 Height 69 in 12/24/2024 Blood pressure systolic 110 mm Hg 12/24/2024 Weight 171.6 lbs 12/24/2024 BMI 25.34 kg/m2 12/24/2024 Encounters Encounter Location Date Provider Diagnosis [address] [place] [address] 09/06/2024 MICHAELA OCHOA Encounter for genera l adult medical examination without abnormal findings Z00.00 ; Ulcerative (chronic) pancolitis with unspecified complications K51.019 ; Mixed hyperlipidemia E78.2 and Encounter for screening for malignant neoplasm of prostate Z12.[address] [place] [address] 12/24/2024 Ghadeer Mazloum Right ear pain H92.[address] [place] [address] 08/04/2024 MICHAELA OCHOA Mixed hyperlipidemia E78.2 and Ulcerative (chronic) pancolitis with unspecified complications K51.019 Assessments Encounter Date Diagnosis (ICD Code) Assessment Notes Treatment Notes Treatment Clinical Notes Section Notes 08/04/2024 Mixed hyperlipidemia (ICD-10 - E78.2) 12/24/2024 Right ear pain (ICD-10 - H92.01) Mr. Macias is a 58 year old gentleman with hyperlipidemia and ulcerative pancolitis here for Concern of ear infection.Plan as follows Right ear pain. Reassurance is given, I have informed patient that there is no sign of infection, no erythema, edema or bulging of the tympanic membrane. I have informed patient that this pain is most likely referred from his tooth. Recommend that the start taken amoxicillin as recommended by the dentist and he can also consider taking Tylenol as needed for pain. The patient is to follow-up with his dentist General concerns have been discussed I have rendered the services for this patient under direct supervision of Dr. Ochoa, who did not see the patient but was available upon request 09/06/2024 Encounter for general adult medical examination without abnormal findings (ICD-10 - Z00.00) Jose is 59 years old gentleman with mixed hyperlipidemia, ulcerative colitis is here today for her annual physical. Plan is as follows Mixed hyperlipidemia. Lipid panel within normal limits and continue on Crestor 5 mg daily. Ulcerative colitis. She is stable at this point and he is asymptomatic and follows up with GI at [facility]. Screening blood work reviewed. He is up-to-date on age specific screening. He was advised to lose 5-10 pounds. 09/06/2024 Ulcerative (chronic) pancolitis with unspecified complications (ICD-10 - K51.019) Jose is 59 years old gentleman with mixed hyperlipidemia, ulcerative colitis is here today for her annual physical. Plan is as follows Mixed hyperlipidemia. Lipid panel within normal limits and continue on Crestor 5 mg daily. Ulcerative colitis. She is stable at this point and he is asymptomatic and follows up with GI at [facility]. Screening blood work reviewed. He is up-to-date on age specific screening. He was advised to lose 5-10 pounds. 08/04/2024 Ulcerative (chronic) pancolitis with unspecified complications (ICD-10 - K51.019) 09/06/2024 Mixed hyperlipidemia (ICD-10 - E78.2) Jose is 59 years old gentleman with mixed hyperlipidemia, ulcerative colitis is here today for her annual physical. Plan is as follows Mixed hyperlipidemia. Lipid panel within normal limits and continue on Crestor 5 mg daily. Ulcerative colitis. She is stable at this point and he is asymptomatic and follows up with GI at [facility]. Screening blood work reviewed. He is up-to-date on age specific screening. He was advised to lose 5-10 pounds. 09/06/2024 Encounter for screening for malignant neoplasm of prostate (ICD-10 - Z12.5) Jose is 59 years old gentleman with mixed hyperlipidemia, ulcerative colitis is here today for her annual physical. Plan is as follows Mixed hyperlipidemia. Lipid panel within normal limits and continue on Crestor 5 mg daily. Ulcerative colitis. She is stable at this point and he is asymptomatic and follows up with GI at [facility]. Screening blood work reviewed. He is up-to-date on age specific screening. He was advised to lose 5-10 pounds. Plan Of Treatment Pending Test Test Name Order Date Xray: Chest-Standard Frontal & Lat 05/28 Future Test Test Name Order Date CBC, Platelet, No Differential-[id number] Lipid Panel-[id number] 09/06/2024 Comp. Metabolic Panel (14)-[id number] 2024 PSA (Serial Monitor)-[id number] 09/06/2024 Next Appt Details Provider Name:JENNINGSJACKIE OCHOA , 09/07/2025 10:00:00 AM, [address] [place] [address], [place], [address], Insurance Providers Payer Name Payer Address Payer Phone Subscriber Number Group Number Insured Name Patient Relationship to Insured Coverage Start Date Coverage End Date [facility] [address] [place] [address] [id number] Jose Macias Self - patient is the insured 1 Medical (General) History Medical History History ICD Code hyperlipidemia Chronic ramirez colitis on colonoscopy in by Dr Mccracken
--- NOTE | 2025-02-14 10:16 | HO.ANESPROP2 ---
Documented by User: Jacque Hammonds NP 02/14/25 10:16 HPI - Anesthesia Eval Consult details Narrative: 59 yr old male for colonoscopy GERD: on PPI PMFSH Active Problems Active Problems: All Active Problems Iron deficiency (Acute) Gastritis (Acute) Thyroid disorder (Acute) Malnutrition (Acute) Colitis (Acute) Past Medical History Medical History GERD (gastroesophageal reflux disease) Elevated cholesterol Glaucoma Family History Family history of problems with anesthesia: No Surgical History Surgical History Hx of esophagogastroduodenoscopy H/O colonoscopy History of Problems with Anesthesia: No Social History Social History Are you a primary wound care specialist to a significant other at home: No Do you presently have visiting nurse or other home services: No Alcohol intake: never Patient Tobacco Use Status: Never used Tobacco Have you been hit, kicked, punched, or otherwise hurt by someone within the past year? If so, by whom?: No Are you DNR?: No Advance Directives: No Advance Directives Information Provided: Yes Meds Allergies Allergy/AdvReac Type Severity Reaction Status Date / Time No Known Allergies Allergy Verified 02/16/25 08:20 Home Medications ?Medication ?Instructions ?Recorded ?Confirmed ?Last Taken ?Type lansoprazole 15 mg capsule,delayed 15 mg PO DAILY 11/28/22 02/14/25 Unknown History release (Prevacid 24Hr) latanoprost 0.005 % eye drops 1 drp ophthalmic (eye) DAILY 11/28/22 02/14/25 Unknown History rosuvastatin 5 mg tablet 5 mg PO DAILY 11/28/22 02/14/25 Unknown History Assessment and Plan Final Anesthetic Review Family History of Problems with Anesthesia: No History of Problems with Anesthesia: No Documented by User: Carrie Motley MD 02/16/25 08:50 [facility] Past Medical History Medical History GERD (gastroesophageal reflux disease) Elevated cholesterol Glaucoma Surgical History Surgical History Hx of esophagogastroduodenoscopy H/O colonoscopy Social History Social History Are you a primary wound care specialist to a significant other at home: No Do you presently have visiting nurse or other home services: No Alcohol intake: never Patient Tobacco Use Status: Never used Tobacco Have you been hit, kicked, punched, or otherwise hurt by someone within the past year? If so, by whom?: No Are you DNR?: No Advance Directives: No Advance Directives Information Provided: Yes Meds Allergies Allergy/AdvReac Type Severity Reaction Status Date / Time No Known Allergies Allergy Verified 02/16/25 08:20 Home Medications ?Medication ?Instructions ?Recorded ?Confirmed ?Last Taken ?Type lansoprazole 15 mg capsule,delayed 15 mg PO DAILY 11/28/22 02/14/25 Unknown History release (Prevacid 24Hr) latanoprost 0.005 % eye drops 1 drp ophthalmic (eye) DAILY 11/28/22 02/14/25 Unknown History rosuvastatin 5 mg tablet 5 mg PO DAILY 11/28/22 02/14/25 Unknown History Exam Airway Mallampati Class: III TM Dist: >3cm Neck ROM: Full Loose/Missing/Broken Teeth: No Heart: RRR Lungs: CTA Assessment and Plan Assessment Anesthesia Assessment: Anesthesia Plan Discussed and Chart Reviewed Final Anesthetic Review NPO: Yes ASA Class: II Final Preanesthetic Review: Meds/Allgs Chart Reviewed, Consent Obtained/Reviewed and Anes Risks/Benef Reviewed Patient Risk: Low Procedure Risk: Low Anesthetic Plan Anesthetic Plan: MAC: Disposition: Standard PACU
[2025-02-14 14:13] VITALS: BMI 25.8
[2025-02-16 08:17] VITALS: BMI 25.6
[2025-02-16] MEDS: Lactated Ringers 1,000 ML 100 ML IVCONT (08:24)
[2025-02-16 08:27] VITALS: BP 132/86; PULSE 68; RESP 18; TEMP 36.6; O2SAT 98
--- NOTE | 2025-02-16 09:41 | P.HPSUR_ITS ---
Pre-Procedural Eval Section A - 24 Hr Update-Section A only Date of Service: 02/16/25 Section B - Complete if H&P > 30 days Chief Complaint: hx disease digestive system,screening Details of Present Illness: egd for bloating and distention Relevant Family History (Specify if Yes): No Relevant Social History: None Present Medications: see Short Stay Collaborative assessment Medical History: Significant History (colitis, high chol,) History of Previous Operations: Relevant previous surgery/procedure and date(s) (colonoscopy) Allergies: Allergies Allergy/AdvReac Type Severity Reaction Status Date / Time No Known Allergies Allergy Verified 02/16/25 08:20 Review of Systems Sugical H&P ROS: Negative: Constitution, Cardiovascular, Respiratory, Neurological, Psychiatric, Hem-Onc, Allergic/Immunologic, Gastrointestinal, Genitourinary, Musculoskeletal, Integumentary, Endocrine and Eyes/Ears/Nose/Throat Exam Surgical H&P Exam: Normal: HEENT, Normal: Heart, Normal: Lungs, Normal: Extr emities, Normal: Abdomen, Normal: Skin and Normal: Neurological Plan Diagnosis/Plan: Unchanged I have reviewed the history and physical and performed a pertinent physical examination on my patient. No changes have occurred unless specified.egd for bloating and distention Time Spent With Patient Time: Total time managing care of this patient today ____ minutes.
--- NOTE | 2025-02-16 10:10 | P.OPN-COLO_ITS ---
Colonoscopy Operative Note Operative Note Date of Service: 02/16/25 Narrative: Operative Information Procedure Description: EGD, Colonoscopy Indication: Abdominal distention, screening Anesthesia: MAC FLEXIBLE TRANSORAL UPPER GASTROINTESTINAL ENDOSCOPY AND COLONOSCOPY PROCEDURE NOTE UPPER ENDOSCOPY Consent: Indications for the procedure and potential complications of bleeding, perforation, reaction to medications and missed diagnosis were discussed with the patient and informed consent was obtained. Instrument: Olympus GIF H 190 J mid size upper endoscope Monitoring: Vital signs and clinical assessment, continuous EKG monitoring, Pulse oximetry, Carbon Dioxide monitoring and blood pressure monitoring were done throughout the procedure. Procedure: The patient was placed in the left lateral decubitis position and pre-procedure medications were administered and a bite block was placed. The endoscope was inserted into the mouth and advanced under direct vision to the third part of duodenum. A careful inspection was made as the upper endoscope was withdrawn including a retroflexed examination of the proximal stomach; Findings and interventions are described below. Findings: Larynx:normal Esophagus: GE junction at 40 cm, diaphragm hiatus at 40 cm, normal mucosa Stomach: Mild erythema. Biopsies were obtained. Grade 2 flap valve on retroflexed examination of the cardia. Duodenum: Normal bulb and descending duodenum, bx taken incl for disaccharidases Intervention: Biopsies as noted above, COLONOSCOPY Instrument: Olympus variable stiffness pediatric scope 190L Colonoscopy Monitoring: Vital signs and clinical assessment, continuous EKG monitoring, Pulse oximetry, Carbon Dioxide monitoring and blood pressure monitoring were done throughout the procedure. Colon withdrawal time was 10 minutes. Procedure: The patient was placed in the left lateral decubitis position and pre-procedure medications were administered. After a digital rectal examination of the ano-rectum, the video colonoscope was inserted into the rectum and advanced through the colon to the cecum/TI. The colonoscope was slowly withdrawn in a retrograde panoramic fashion and the colon mucosa was carefully examined including a retroflexed view of the rectum. Findings and interventions are described below. Procedure Difficulty: easy Findings: Terminal Ileum-normal, bx taken bx taken from right and left colon and rectum in separate jars Cecum: mild erythema and few small micro abscesses Ascending Colon: mild erythema and few small micro abscesses Transverse Colon -normal Descending Colon:normal Sigmoid Colon: normal, old tattoo nilda seen Rectum: Retroflexion with small internal hemorrhoids, grade I Anorectum - normal Colon preparation: [place] Bowel Preparation Scale Right colon; 2 Transverse colon: 2 Left colon; 2 (0 = Unprepared colon segment with mucosa not seen due to solid stool that cannot be cleared. 1 = Portion of mucosa of the colon segment seen, but other areas of the colon segment not well seen due to staining, residual stool and/or opaque liquid. 2 = Minor amount of residual staining, small fragments of stool and/or opaque liquid, but mucosa of colon segment seen well. 3 = Entire mucosa of colon segment seen well with no residual staining, small fragments of stool or opaque liquid) Impression and Post Procedure Diagnosis: Endoscopy Findings: mild gastritis Colonoscopy Findings: mild colitis internal hemorrhoids Plan: Await Pathology results Repeat Colonoscopy in 1-2 years due to hx of UC or earlier if clinically indicated High fiber diet leaflet avoid straining at stool, epsom salts and sitz bath, anusol supps or cream check if taking mesalamine Above findings were reviewed with the patient and relevant handouts were provided if indicated.
[2025-02-16 10:13] VITALS: BP 96/62; PULSE 76; RESP 12; TEMP 36.2; O2SAT 97
[2025-02-16 10:28] VITALS: BP 94/62; PULSE 74; RESP 16; O2SAT 97
[2025-02-16 10:43] VITALS: BP 114/76; PULSE 65; RESP 16; TEMP 36.2; O2SAT 98
[2025-02-22 17:38] LABS: Lactase 5.6 (15.0-45.5); Maltase 153.6 (100.0-224.4); Palatinase 15.9 (5.0-26.3); Sucrase 45.7 (25.0-69.9)
== END 2025-02-16 11:24 | disposition home or self-care (01) ==
PROVIDERS: PCP Hospitalist; Visit Provider Internal Medicine Gastroenterology
PROC: (CPT 45380; principal; 2025-02-16 09:30)
DX: Z12.11 Encounter for screening for malignant neoplasm of colon (principal); Z87.19 Personal history of other diseases of the digestive system; E61.1 Iron deficiency; K29.70 Gastritis, unspecified, without bleeding; K52.9 Noninfective gastroenteritis and colitis, unspecified; K64.0 First degree hemorrhoids; L53.9 Erythematous condition, unspecified
CPT/HCPCS: 45380; 43239; 82657; 83631; 88305; 88313; 88342; J2003; J2704

== ENCOUNTER → 2025-02-16 08:00 | Outpatient (BNV) | payer BC, SELFPAY | PROVIDERS: PCP Hospitalist; Visit Provider Internal Medicine Gastroenterology | DX: Z12.11 Encounter for screening for malignant neoplasm of colon (principal); K52.9 Noninfective gastroenteritis and colitis, unspecified; K64.0 First degree hemorrhoids; K29.70 Gastritis, unspecified, without bleeding | CPT/HCPCS: 43239; 45380 ==